=== PATIENT | male | born 1960 | race Caucasian/White ===

== ENCOUNTER 2021-04-19 10:49 | Emergency (ER) | payer OTHER, SELFPAY ==
[2021-04-19 10:55] VITALS: BP 146/90; PULSE 64; RESP 16; TEMP 36.8; O2SAT 99
--- NOTE | 2021-04-19 11:28 | ED.ANIMALBIT ---
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 He noticed the [place] circling the truck. When he got out and drop the tailgate the dog bit his left forearm. They know where the dog lives and they should be able to quarantine him for 10 days. complaint: animal bite Onset (ago): hour(s) (1) Animal: dog Description of animal: unknown animal and appeared well Mechanism: bite Location - Extremities: Left: forearm Pain description: dull Severity scale (1-10): 1 Context: provoked Associated symptoms: none Related Data Patient tetanus UTD: No Home Medications Medication Instructions Recorded Confirmed apixaban [Eliquis] 2.5 mg PO BID 04/19/21 04/19/21 levothyroxine 100 mcg PO DAILY 04/19/21 04/19/21 lisinopril 10 mg PO DAILY 04/19/21 04/19/21 Allergies Allergy/AdvReac Type Severity Reaction Status Date / Time No Known Allergies Allergy Verified 04/19/21 11:38 Review of Systems Review of Systems: All systems reviewed & are unremarkable except as noted in HPI and below PMFSH Past Medical History Medical History (Updated 04/19/21 @ 11:32 by Frankie Fatima MD) Hypertension Hypothyroidism, postsurgical Surgical History Surgical History (Updated 04/19/21 @ 11:32 by Frankie Fatima MD) H/O partial thyroidectomy Social History Social History (Updated 04/19/21 @ 11:42 by Frankie Fatima MD) Smoking packs per day: 1 Smoking cigarettes per day: 20.0 Smoking status: Current every day smoker Tobacco type: cigarettes Alcohol intake: current Alcohol use details: Social Substance use: never Exam Const: General: healthy appearing and no acute distress Nutritional Appearance: well nourished Orientation/consciousness: patient oriented x3 HENMT: Head: normal to inspection Ears: external ears normal Face and sinus: normal facial exam Eyes: Conjunctivae: conjunctivae normal Pupils: Equal, round and reactive pupils present EOM: EOMs intact bilaterally Neck: Neck: normal visual inspection Resp: Effort & Inspection: normal respiratory effort Auscultation: clear to auscultation bilaterally Cardio: Rate: regular rate Rhythm: regular rhythm GI: GI Palp: Yes Soft to palpation and No Tenderness to palpation present (GI) Auscultation: normal bowel sounds Back/Spine/Pelvis: Cervical Spine: cervical ROM normal Thoracic/Lumbar Spine: thoraco-lumbar ROM normal Skin: General skin exam: normal color Wounds: wounds noted laceration left dorsal forearm size (4 cm) Neuro: General: patient oriented x3, moves all extremities and no focal motor deficits Speech: normal speech Gait exam (Neuro): Normal gait present Extrem: General: normal to inspection and no clubbing, cyanosis or edema Psych: Appearance: grossly normal and well kempt Mental Status: mental status grossly normal Affect: normal affect Attitude: cooperative Thought content: Yes Normal thought content present Procedures Laceration Laceration 1: Date: 04/19/21 Site: upper extremity (forearm) Side (If applicable): left Size (cm): 4 Description: linear and clean ====== Skin Level ====== Skin layer closed with: dermabond ====== Subcutaneous Layer ====== ====== Muscle Layer ====== ====== Tendon Layer ====== Discharge Plan Discharge Clinical Impression: Dog bite of arm Qualifiers: Encounter type: initial encounter Laterality: left Qualified Code(s): S41.152A - Open bite of left upper arm, initial encounter Patient Disposition: Home, Self-Care Condition: Improved Instructions: Antibiotic Form, Skin Adhesive Care (ED) Prescriptions: New amoxicillin-pot clavulanate [Augmentin] 875-125 mg tablet 1
[2021-04-19] MEDS: TETANUS,DIPHTHERIA,AC PERTUSSIS ADULT 0.5 ML (ADACEL) IM (11:30)
[2021-04-19] MEDS: AMOXICILLIN/CLAVULANATE K 875-125 MG TAB 1 TABLET PO (11:34)
[2021-04-19 11:42] VITALS: RESP 16
== END 2021-04-19 12:00 | disposition home or self-care (01) ==
PROVIDERS: Emergency Provider Emergency Medicine
DX: S41.152A Open bite of left upper arm, initial encounter (principal); W54.0XXA Bitten by dog, initial encounter
CPT/HCPCS: 12002; 90471; 90715; 99283; A9270